=== PATIENT | male | born 1995 | race Caucasian/White ===

== ENCOUNTER 2024-10-08 14:05 | Emergency (ER) | payer BC, SELFPAY ==
[2024-10-08 14:16] VITALS: BP 117/63; PULSE 91; RESP 16; TEMP 37.3; O2SAT 100
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
== END 2024-10-08 14:50 | disposition home or self-care (01) ==
PROVIDERS: Emergency Provider Nurse Practitioner Family
DX: L23.7 Allergic contact dermatitis due to plants, except food (principal); L03.115 Cellulitis of right lower limb; M41.9 Scoliosis, unspecified
CPT/HCPCS: 99203; G0463